=== PATIENT | male | born 2000 | race Caucasian/White ===

== ENCOUNTER 2020-04-18 23:56 | Emergency (ER) | payer SELFPAY ==
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
[2020-04-19 00:04] VITALS: BP 119/80; PULSE 77; RESP 16; TEMP 36.1; O2SAT 100
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
[2020-04-19 01:20] VITALS: BP 123/69; PULSE 70; RESP 16; O2SAT 99
== END 2020-04-19 01:24 | disposition home or self-care (01) ==
PROVIDERS: Emergency Provider Emergency Medicine
DX: M54.2 Cervicalgia (principal); S50.12XA Contusion of left forearm, initial encounter; V49.50XA Passenger injured in collision with unspecified motor vehicles in traffic accident, initial encounter
CPT/HCPCS: 71046; 72125; 99284

== ENCOUNTER 2021-01-17 15:55 | Emergency (ER) | payer BC, SELFPAY ==
--- NOTE | ~2021-01-17 | XR_ITS ---
EXAMINATION: XR wrist LT min 3V DATE: 01/17/2021 16:30 INDICATION: Left wrist pain and laceration, dog bite TECHNIQUE: Posteroanterior, ulnar deviation, oblique, and lateral views of the left wrist were obtain ed. COMPARISON: None available FINDINGS: There is dorsal soft tissue swelling of the wrist. No fracture, dislocation, or subluxation is identified. The joint spaces are normal. IMPRESSION: 1. Dorsal soft tissue swelling of the wrist without acute osseous abnormality. Reviewed, dictated and finalized at location B.
[2021-01-17 16:15] VITALS: BP 118/73; PULSE 95; RESP 18; TEMP 36.6; O2SAT 100
[2021-01-17 17:03] VITALS: BP 127/82; PULSE 75; RESP 18; TEMP 36.4; O2SAT 100
--- NOTE | 2021-01-17 17:20 | ED.ANIMALBIT ---
HPI - Animal Bite General Chief Complaint: Animal Bite Stated Complaint: dog bite left wrist Time Seen by Provider: 01/17/21 17:07 Source: patient Mode of arrival: ambulatory Limitations: no limitations History of Present Illness HPI narrative: Patient is a 20-year-old male who presents complaining of dog bite to left wrist. Patient reports his dog and grandmother's dog began to fight and he broke it up. He reports reaching hand in the middle of two dogs and getting bit in the left wrist. Patient has two puncture wounds to left wrist. He denies any other injuries. Mild swelling noted. Patient reports dogs are up-to-date with vaccines as far is I know . He denies other injuries, denies other complaints at this time. MD complaint: animal bite Related Data Allergies Allergy/AdvReac Type Severity Reaction Status Date / Time divalproex sodium Allergy Seizure Verified 01/17/21 17:06 [From [facility]] Review of Systems Review of Systems: Narrative: CONSTITUTIONAL: Denies fever, chills, or sweats. EYES: Denies visual changes, redness, or discharge. ENT: Denies rhinorrhea, congestion, sore throat, or otalgia. CARDIOVASCULAR: Denies chest pain, palpitations, or edema. RESPIRATORY: Denies cough or dyspnea. GASTROINTESTINAL: Denies abdominal pain, nausea, vomiting, or diarrhea. GENITOURINARY: Denies dysuria or hematuria. SKIN: Dog bite to left wrist MUSCULOSKELETAL: Denies back pain, joint pain, or myalgia. NEUROLOGIC: Denies headache, numbness, dizziness, or weakness. PSYCHIATRIC: Denies anxiety or depression. PMFSH Past Medical History Medical History Anxiety Depression Social History Social History Smoking status: Never smoker Alcohol intake: current Alcohol use details: Social, rarely Substance use: never Gender identity (if verbalized by the patient): Male Comments At the time of signature, I have reviewed and agree with nursing past medical, surgical, social, and family history unless otherwise noted. Please see nursing chart for further information. There is no relevant family history pertinent to the presenting complaint. Exam Narrative: Exam Narrative: GENERAL: Well-appearing, well-nourished, and in no acute distress. HEAD: Normocephalic, atraumatic. EYES: EOMI. No redness or drainage. Conjunctiva are normal. ENT: Mucous membranes pink and moist. CHEST: No respiratory distress. HEART: Regular rate and rhythm. EXTREMITIES: Normal range of motion. No edema. SKIN: Two puncture wounds noted to left wrist, no drainage noted, distal sensation intact, good radial pulse, good capillary refill NEURO: No focal deficits. Alert and oriented x3. Gait steady. PSYCH: Normal affect. No signs of depression or anxiety. Course Vital Signs Vital signs: Vital Signs Temperature 36.6 C 01/17/21 16:15 Pulse Rate 95 01/17/21 16:15 Respiratory Rate 18 01/17/21 16:15 Blood Pressure 118/73 01/17/21 16:15 Pulse Oximetry 100 01/17/21 16:15 Temperature 36.4 C 01/17/21 17:03 Pulse Rate 75 01/17/21 17:03 Respiratory Rate 18 01/17/21 17:03 Blood Pressure 127/82 01/17/21 17:03 Pulse Oximetry 100 01/17/21 17:03 Reviewed MDM - Animal Bite MDM Narrative Medical decision making narrative: Patient has two puncture wounds to the left wrist, no surrounding erythema. Patient has mild edema of the left wrist, x-ray negative at this time. Discussed with patient the need to take antibiotics and to follow-up with PCP. Patient agrees with plan of care. Patient is stable for discharge home with outpatient follow-up as discussed. Differential Diagnosis Differential diagnosis: Likely bite by animal, cat bite and dog bite Critical Care Time Critical Care Time Critical Care Time: No Discharge Plan Discharge Clinical Impression: Dog bite Qualifiers: Encounter type: initial e
[2021-01-17] MEDS: TETANUS,DIPHTHERIA,AC PERTUSSIS ADULT (0.5 ML) BOOSTRIX IM (17:38)
[2021-01-17 18:00] VITALS: BP 109/79; PULSE 78; RESP 14; TEMP 37.1; O2SAT 100
== END 2021-01-17 18:05 | disposition home or self-care (01) ==
PROVIDERS: Emergency Provider Nurse Practitioner
DX: S61.552A Open bite of left wrist, initial encounter (principal); W54.0XXA Bitten by dog, initial encounter; Z23 Encounter for immunization
CPT/HCPCS: 73110; 90471; 90715; 99283